=== PATIENT | male | born 1990 | race Two or more races ===

== ENCOUNTER 2022-11-07 21:58 | Emergency (ER) | payer OTHER ==
[~2022-11-07] VITALS: Ht 167.6 cm; Wt 75.0 kg
[2022-11-07 22:04] VITALS: BP 116/76; PULSE 66; RESP 17; TEMP 98.1
[2022-11-08] MEDS ORDERED: IBUPROFEN 600 MG TABLET PO ONE (00:30)
[2022-11-08] MEDS ORDERED: IBUP-1492 PO (00:34)
== END 2022-11-08 00:45 | disposition home or self-care (01) ==
LOC: EMS 22:01
DX: S80.02XA Contusion of left knee, initial encounter (principal); F10.20 Alcohol dependence, uncomplicated; F41.9 Anxiety disorder, unspecified; W01.0XXA Fall on same level from slipping, tripping and stumbling without subsequent striking against object, initial encounter; Y93.89 Activity, other specified; Y92.89 Other specified places as the place of occurrence of the external cause; Y99.8 Other external cause status; Y90.9 Presence of alcohol in blood, level not specified
CPT/HCPCS: 99283